=== PATIENT | female | born 1960 | race Caucasian/White ===

== ENCOUNTER 2017-05-22 00:48 | Emergency (ER) | payer OTHER ==
[~2017-05-22] VITALS: Ht 152.4 cm; Wt 43.5 kg
[~2017-05-22 00:48] MED LIST: ACYC800T57 PO; AMO500 PO; CETI10CA PO; CYCL-319 PO; D-ME473S18 PO; GABA300C16 PO; GUAI120S26 PO; HYDR-906 PO; IBUP400T22 PO; NAPR-260 PO
[2017-05-22 01:01] VITALS: Ht 152.4 cm; Wt 43.5 kg
[2017-05-22] MEDS ORDERED: ONDANSETRON (ODT) 4 MG TAB ODT STA (01:59)
--- NOTE | 2017-05-22 02:41 | RADRPT ---
PROCEDURE: CT head, without contrast. CLINICAL INDICATION: Headache and nausea. TECHNIQUE: Noncontrast CT examination of the head, with axial, sagittal and coronal reformatted im ages. Automated dose exposure control was employed. CTDI: 44.90 and DLP: 720.23. COMPARISON: None. FINDINGS: No acute hemorrhage. Subarachnoid spaces are substantially preserved and symmetric. Ventricles ar e unremarkable. Septum cavum and vergae variants. No mass effect. Meraz-white matter distinction is preserved without evident decreased attenuation t o suggest acute or recent infarct. Sinuses and osseous structures are unremarkable. IMPRESSION: No acute process in the head. RPTAT: [facility] Physician Julio C Date Time Electronically viewed and signed by Physician Julio C on 05/22/2017 02:41 RS/
--- NOTE | 2017-05-22 02:47 | ERD ---
ER Documentation Chief Complaint Date/Time DATE: 05/22/17 TIME: 02:44 Chief Complaint HEAD, NECK PAIN, NAUSEA, VOMITING X 1 DAY HPI 56-year-old female presents here in emergency department for multiple complaints. Patient states that she just got fired at work today, patient states that she was in a lot of stress is feeling very anxious, she started to have headache and neck pain throbbing pain, 6/10 scale, afterwards, she started to have vomiting episodes and some diarrhea. Patient does not have any blood in the stool or black stool. Patient does not have any blood in the vomit. Patient denies any abdominal pain. Patient denies any fever or chills.Patient denies any abdominal pain at this time. Patient did not take any medications for symptoms. patient denies any chest pain or shortness of breath. Patient denies any dizziness. ROS All systems reviewed and are negative except as per history of present illness. Medications Home Meds Active Scripts Dextromethorphan Hb-Promethazine Hcl (Promethazine DM Syrup) 473 Ml Syrup, 5 ML PO Q6H Y for COUGH, #4 OZ Prov:FREDRICK HANSEN MD 05/19/17 Ibuprofen* (Motrin*) 400 Mg Tab, 400 MG PO Q6, #15 TAB Prov:FREDRICK HANSEN MD 05/19/17 Amoxicillin* (Amoxicillin*) 500 Mg Cap, 500 MG PO TID for 10 Days, CAP Prov:FREDRICK HANSEN MD 05/19/17 Cetirizine Hcl* (Zyrtec*) 10 Mg Capsule, 10 MG PO DAILY, #30 TAB.CHEW Prov:SARAH EVANGELISTA NP 08/06/16 Gabapentin* (Gabapentin*) 300 Mg Capsule, 300 MG PO BID, #30 CAP Prov:SARAH EVANGELISTA NP 08/06/16 Hydrocodone/Acetaminophen (Prentiss 5-325 Tablet) 1 Each Tablet, 1 TAB PO Q6H Y for PAIN, #20 TAB Prov:SARAH EVANGELISTA NP 08/06/16 Acyclovir* (Zovirax*) 800 Mg Tablet, 800 MG PO 5 TIMES DAILY for 7 Days, TAB Prov:SARAH EVANGELISTA NP 08/06/16 Pjodyffmluj-Q-Snkecfbcut Hb* (Guaifenesin* DM Syrup) 120 Ml Syrup, 10 ML PO Q4H Y for COUGH for 7 Days, #120 ML Prov:Leann Brisenoarelis GLOVER 08/06/16 Naproxen* (Naprosyn*) 500 Mg Tablet, 500 MG PO BID Y for PAIN AND/OR INFLAMMATION, #20 TAB Prov:Leann Brisenoarelis GLOVER 08/06/16 Cyclobenzaprine Hcl* (Cyclobenzaprine Hcl*) 10 Mg Tablet, 10 MG PO TID, #15 TAB Prov:Shauna Briseno ADALBERTO 08/06/16 Allergies Allergies: Coded Allergies: No Known Allergy (Unverified , 08/06/16) PMhx/Soc Medical and Surgical Hx: pt denies Medical Hx, pt denies Surgical Hx History of Surgery: No Anesthesia Reaction: No Hx Neurological Disorder: No Hx Respiratory Disorders: No Hx Cardiac Disorders: No Hx Psychiatric Problems: No Hx Miscellaneous Medical Probl: No (PT DENIES) Hx Alcohol Use: No Hx Substance Use: No Hx Tobacco Use: No Smoking Status: Never smoker FmHx Family History: No coronary disease, No diabetes, No other Physical Exam Vitals Vital Signs Date Time Temp Pulse Resp B/P Pulse Ox O2 Delivery O2 Flow Rate FiO2 05/22/17 01:01 98.7 77 17 119/67 100 Physical Exam GENERAL: The patient is well developed and appropriate for usual state of health, in no apparent distress. CHEST: Clear to auscultation bilaterally. There are no rales, wheezes or rhonchi. HEART: Regular rate and rhythm. No murmurs, clicks, rubs or gallops. No S3 or S4. ABDOMEN: Soft, nontender and nondistended. hyperactive bowel sounds. No rebound or guarding. No gross peritonitis. No gross organomegaly or masses. No Martinez sign or McBurney point tenderness. BACK: No midline or flank tenderness. EXTREMITIES: Equal pulses bilaterally. There is no peripheral clubbing, cyanosis or edema. No focal swelling or erythema. Full range of motion. Grossly neurovascularly intact. NEURO: Alert and oriented. Cranial nerves 2-12 intact. Motor strength in all 4 extremities with 5/5 strength. Sensation grossly intact. Normal speech and gait. negative Romberg sign. Negative pronator drift. SKIN: There is no apparent rash or petechia. The skin is warm and dry. HEMATOLOGIC AND LYMPHATIC: There is no evidence of excessive bruising or lymphedema. No gross cervical, axillary, or inguinal lymphadenopathy. Results 24 hrs Current Medications Medications (Trade) Dose Ordered Sig/Clive Route PRN Reason Start Time Stop Time Status Last Admin Dose Admin Ondansetron HCl (Zofran Odt) 4 mg ONCE STAT ODT 05/22/17 01:59 05/22/17 02:00 DC 05/22/17 02:12 Patient was given Zofran here in the emergency department. After treatment, patient was able to tolerate po fluids here in the emergency department without any vomiting. There is no signs and symptoms of dehydration. PROCEDURE: CT head, without contrast. CLINICAL INDICATION: Headache and nausea. TECHNIQUE: Noncontrast CT examination of the head, with axial, sagittal and coronal reformatted images. Automated dose exposure control was employed. CTDI: 44.90 and DLP: 720.23. COMPARISON: None. FINDINGS: No acute hemorrhage. Subarachnoid spaces are substantially preserved and symmetric. Ventricles are unremarkable. Septum cavum and vergae variants. No mass effect. Meraz-white matter distinction is preserved without evident decreased attenuation to suggest acute or recent infarct. Sinuses and osseous structures are unremarkable. IMPRESSION: No acute process in the head. 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 It can be also stress related.There is low suspicion for abdominal emergencies at this time. Patients abdominal exam is normal at this time.radiology exams or laboratory testing not indicated at this time. No symptoms of dehydration.There is low suspicion for appendicitis, cholecystitis, abdominal aortic aneurysms or peritonitis at this time. There is low suspicion for sepsis. Patient appears well and is hemodynamically stable. Patient symptoms are consistent with possible tension headache. There is low suspicion for neurological emergencies at this time since patients neurologic exam is normal. Patient did not have any altered level consciousness, vomiting, changes in balance or memory and did not have any head injury. Patients CT scan of the head does not show any neurological emergencies at this time. Disposition: Home. Condition: Stable Prescription zofran,Bentyl, Tylenol Instructions: Patient is advised to take medications as prescribed. Patient is advised to rest, increase fluid intake and do brat diet for next 1-2 days and progress as tolerated. Patient is advised that if symptoms are worse, severe abdominal pain, uncontrolled vomiting, high fever, severe flank pain, worst signs and symptoms, to return to the emergency department immediately. Otherwise, patient can follow up with primary care doctor in 5-7 days. Departure Diagnosis: Primary Impression: Headache Headache type: unspecified Headache chronicity pattern: acute headache Intractability: not intractable Qualified Code: R51 - Acute nonintractable headache, unspecified headache type Additional Impression: Vomiting and diarrhea Condition: Stable Patient Instructions: Self-Care for Headaches, Self-Care for Vomiting and Diarrhea Additional Instructions: Patient is advised to take medications as prescribed. Patient is advised to rest, increase fluid intake and do brat diet for next 1-2 days and progress as tolerated. Patient is advised that if symptoms are worse, severe abdominal pain , uncontrolled vomiting, high fever, severe flank pain, worst signs and symptoms , to return to the emergency department immediately. Otherwise, patient can follow up with primary care doctor in 5-7 days. SARAH EVANGELISTA NP May 22, 2017 02:47
[2017-05-22] MEDS ORDERED: ONDA4TAB14 PO (02:49)
[2017-05-22] MEDS ORDERED: DICY10CA60 PO (02:49)
[2017-05-22] MEDS ORDERED: ACET500C5 PO (02:49)
[2017-05-22 03:12] VITALS: BP 114/72; PULSE 67; RESP 16; TEMP 98.3
== END 2017-05-22 03:13 | disposition home or self-care (01) ==
LOC: FTE 00:48
DX: R51 Headache (principal); R11.10 Vomiting, unspecified; R19.7 Diarrhea, unspecified
CPT/HCPCS: 70450; Z7502; Z7610

== ENCOUNTER 2019-03-06 15:32 | Emergency (ER) | payer OTHER ==
[~2019-03-06] VITALS: Ht 147.3 cm; Wt 43.4 kg
[~2019-03-06 15:32] MED LIST changes: +ACET500C5 PO; +ACYC800T5 PO; -ACYC800T57 PO; -AMO500 PO; +AMOX500C2 PO; -CYCL-319 PO; +CYCL10TA7 PO; +DICY10CA40 PO; +GUAI120S25 PO; -GUAI120S26 PO; +HYDR-4011 PO; -HYDR-906 PO; +IBUP-1561 PO; -IBUP400T22 PO; -NAPR-260 PO; +NAPR-985 PO; +ONDA4TAB14 PO
[2019-03-06 15:35] VITALS: BP 108/58; PULSE 84; RESP 18; Ht 147.3 cm; Wt 43.4 kg
[2019-03-06] MEDS ORDERED: SULF3.5O15 LEFT EYE (15:55)
--- NOTE | 2019-03-06 15:59 | ERD ---
ER Documentation Chief Complaint Chief Complaint lt eye redness x 3 days HPI 58-year-old female presents with some redness and irritation of left lower eyelid for last 3 days patient has a history of trauma patient has contact lens use. She denies visual changes or visual deficits. She denies any pain or discomfort in the actual globe. She denies URI symptoms, additional symptoms. ROS All systems reviewed and are negative except as per history of present illness. Medications Home Meds Active Scripts Sulfacetamide Sodium* (Bleph-10*) 10% - 3.5 Gm Opht Oint...g., 1 APPLIC LEFT EYE QID for 7 Days, #1 TUB Prov:FREDRICK HANSEN MD 03/06/19 Acetaminophen* (Tylophen*) 500 Mg Capsule, 1 CAP PO Q6H PRN for PAIN AND OR ELEVATED TEMP, #20 CAP Prov:SARAH EVANGELISTA NP 05/22/17 Ondansetron (Ondansetron Odt) 4 Mg Tab.rapdis, 4 MG PO Q8 PRN for NAUSEA AND/OR VOMITING, #30 TAB Prov:SARAH EVANGELISTA NP 05/22/17 Dicyclomine HCl (Dicyclomine HCl) 10 Mg Capsule, 10 MG PO QID, #20 CAP Prov:SARAH EVANGELISTA NP 05/22/17 Dextromethorphan Hb-Promethazine Hcl (Promethazine DM Syrup) 473 Ml Syrup, 5 ML PO Q6H PRN for COUGH, #4 OZ Prov:FREDRICK HANSEN MD 05/19/17 Ibuprofen* (Motrin*) 400 Mg Tab, 400 MG PO Q6, #15 TAB Prov:FREDRICK HANESN MD 05/19/17 Amoxicillin* (Amoxicillin*) 500 Mg Cap, 500 MG PO TID for 10 Days, CAP Prov:FREDRICK HANSEN MD 05/19/17 Cetirizine Hcl* (Zyrtec*) 10 Mg Capsule, 10 MG PO DAILY, #30 TAB.CHEW Prov:SARAH EVANGELISTA NP 08/06/16 Gabapentin* (Gabapentin*) 300 Mg Capsule, 300 MG PO BID, #30 CAP Prov:SARAH EVANGELISTA NP 08/06/16 Hydrocodone/Acetaminophen ([place] 5-325 Tablet) 1 Each Tablet, 1 TAB PO Q6H PRN for PAIN, #20 TAB Prov:SARAH EVANGELISTA MAEly Dale NP 08/06/16 Acyclovir* (Zovirax*) 800 Mg Tablet, 800 MG PO 5 TIMES DAILY for 7 Days, TAB Prov:JEAN CARLOSSARAH JOSHIEly Dale NP 08/06/16 Vyffqrrnfbo-F-Nmvlktistz Hb* (Guaifenesin* DM Syrup) 120 Ml Syrup, 10 ML PO Q4H PRN for COUGH for 7 Days, #120 ML Prov:Shauna Briseno PA-C 08/06/16 Naproxen* (Naprosyn*) 500 Mg Tablet, 500 MG PO BID PRN for PAIN AND/OR INFLAMMATION, #20 TAB Prov:Shauna Briseno PA-C 08/06/16 Cyclobenzaprine Hcl* (Cyclobenzaprine Hcl*) 10 Mg Tablet, 10 MG PO TID, #15 TAB Prov:Shauna Briseno 08/06/16 Allergies Allergies: Coded Allergies: No Known Allergy (Unverified , 08/06/16) PMhx/Soc Medical and Surgical Hx: pt denies Medical Hx, pt denies Surgical Hx History of Surgery: No Anesthesia Reaction: No Hx Neurological Disorder: No Hx Respiratory Disorders: No Hx Cardiac Disorders: No Hx Psychiatric Problems: No Hx Miscellaneous Medical Probl: No (PT DENIES) Hx Alcohol Use: No Hx Substance Use: No Hx Tobacco Use: No Smoking Status: Never smoker FmHx Family History: No diabetes, No coronary disease, No other Physical Exam Vitals Vital Signs Date Temp Pulse Resp B/P (MAP) Pulse Ox O2 O2 Flow FiO2 Time Delivery Rate 03/06/19 98.0 84 18 108/58 99 15:35 (75) Physical Exam Const: No acute distress Head: Atraumatic Eyes: Normal Conjunctiva. Eyes Audrey and extraocular movements intact. Left lower lid with a few small areas of swelling and obstructed glands. Irritation of the lower lids without proptosis or abnormal eye movements. No periorbital swelling. ENT: Normal External Ears, Nose and Mouth. Neck: Full range of motion. No meningismus. Resp: Clear to auscultation bilaterally Cardio: Regular rate and rhythm, no murmurs Abd: Soft, non tender, non distended. Normal bowel sounds Skin: No petechiae or rashes Back: No midline or flank tenderness Ext: No cyanosis, or edema Neur: Awake and alert Psych: Normal Mood and Affect Procedures/MDM Patient presents with signs and symptoms of left lower lid stye without involvement of the globe, visual changes, additional concerning signs or symptoms. There is no signs of orbital cellulitis, threats to vision. She will treated with warm compresses, left eye ointment, primary care and ophthalmology follow-up for persistent symptoms or return precautions. The patient was stable with no new complaints during the ER course. Clinically, there is no current evidence to suggest meningitis, sepsis, acute abdomen, pneumonia, stroke, acute coronary syndrome, pulmonary embolism, aortic dissection or any other emergent condition appearing to require further evaluation or hospitalization. Patient counseled regarding my diagnostic impression and care plan. Prior to discharge all questions answered. Pt agrees with treatment plan and understands strict return precautions. Pt is instructed to follow up with primary care provider within 24-48 hours. Precautionary instructions provided including instructions to return to the ER if not improving or for any worsening or changing symptoms or concerns. Disclaimer: Inadvertent spelling and grammatical errors are likely due to EHR/dictation software use and do not reflect on the overall quality of patient care. Also, please note that the electronic time recorded on this note does not necessarily reflect the actual time of the patient encounter. Patient has no signs or symptoms of visual changes, visual field deficits. There are no signs or symptoms to suggest orbital cellulitis, retinal detachment, optic neuritis, retinal artery ischemia, dendritic lesions, ulcers, threats to vision or additional eye emergencies. Doubt acute glaucoma. Patient will be discharged home with recommendations for primary care and ophthalmology follow-up within the next 1-2 days. They should otherwise return to the ER for persistent or worsening symptoms. Departure Diagnosis: Primary Impression: Stye Laterality: left Eyelid: lower Qualified Codes: H00.015 - Hordeolum externum left lower eyelid Condition: Stable Patient Instructions: Sty Additional Instructions: pone agua tibia. Cheque otro vez con garcia doctor primario en el proximo samuels or regresa para mas o nueva simptomas. va al specialista para simptoma despues de tratamiento. TEEHEE,FREDRICK N. MD Mar 06, 2019 15:59
== END 2019-03-06 16:05 | disposition home or self-care (01) ==
LOC: FTE 15:32
DX: H00.015 Hordeolum externum left lower eyelid (principal)
CPT/HCPCS: 99283